=== PATIENT | female | born 1995 | race African-American/Black ===

== ENCOUNTER 2018-07-12 09:27 | Outpatient (CLI) | payer OTHER ==
--- NOTE | 2018-07-12 11:49 | ULT ---
OB ULTRASOUND: 07/12/2018 PROVIDED CLINICAL HISTORY: Assess anatomy. FINDINGS: A single live intrauterine gestation is documented, in vertex presentation, with a heart rate of 155 beats per minute. The placenta is posteriorly located and the placental tip approximates the interna l cervical os. Cervical length appears adequate. Estimated gestational age, based on today's examin ation, is 20 weeks 2 days. Estimated weight is 339, plus or minus 50, g. Amniotic fluid index is 14.9. anatomic survey demonstrates a normal appearance to the head, heart, stomach, kidneys, umbilical cord, cord insertion, bladder, spine, face, and upper and lower extremities. BIOMETRY: BPD: 4.63 cm (20 weeks 0 days). HEAD CIRCUMFERENCE: 17.54 cm (20 weeks 1 day). ABDOMINAL CIRCUMFERENCE: 14.61 cm (20 weeks 0 days). FEMUR LENGTH: 3.38 cm (20 weeks 5 days). IMPRESSION: Single live intrauterine gestation, as described above. The placental tip approximates the internal cervical os. Followup is recommended. CODE T POS: NORBERTO
== END 2018-07-12 09:28 | disposition home or self-care (01) ==
LOC: BICULT 09:27
PROVIDERS: ATTEND Family Medicine
DX: O09.92 Supervision of high risk pregnancy, unspecified, second trimester (principal); Z3A.20 20 weeks gestation of pregnancy
CPT/HCPCS: 76805

== ENCOUNTER 2018-11-18 09:24 | Inpatient (IN) | payer OTHER ==
[2018-11-18] MEDS ORDERED: Ondansetron PF 4 MG/2 ML Vial IVP PRN ×3 (09:52→15:20)
[2018-11-18] MEDS ORDERED: CEFAZOLIN 2 GM in Premix Bag 1 BAG IVPB SCH (09:52)
[2018-11-18] MEDS ORDERED: Promethazine HCl 25 MG/ML VIAL IM PRN ×3 (09:52→15:20)
[2018-11-18] MEDS ORDERED: Butorphanol Tartrate 1 MG/ML VIAL SLOW IVP PRN (09:52)
[2018-11-18] MEDS ORDERED: Bicitra 30 ML UDCUP PO SCH (09:52)
[2018-11-18] MEDS ORDERED: Lactated Ringer's 1,000 ML IV SCH (09:52)
[2018-11-18 10:03] VITALS: BMI 42.4
[2018-11-18 10:37] LABS: Mean Corpuscular Hemoglobin 26.4 pg (27.0-31.0); Mean Corpuscular Volume 80.2 fL (78.0-98.0); RBC Distribution Width 14.5 % (11.5-14.5); Red Blood Cell (RBC) Count 4.18 mill/uL (4.20-5.40); White Blood Cell (WBC) Count 9.6 thou/uL (4.8-10.8)
[2018-11-18 10:55] LABS: Mean Platelet Volume 9.8 fL (7.4-10.4); Platelet Count 137 thou/uL (130-400)
[2018-11-18 11:14] LABS: HBSAg Index 0.34 S/CO (0-0.99); Hep B Surf Ag Non-Reactive S/CO (NonReactive); Syphilis Antibody Nonreactive (Nonreactive); Syphilis Antibody Index 0.05 S/CO (<1.00 Non-Reactive)
[2018-11-18] MEDS ORDERED: Ondansetron PF 4 MG/2 ML Vial ONE ×2 (11:41→12:03)
[2018-11-18] MEDS ORDERED: MORPHINE 5 MG/10 ML PF VIAL ONE (12:02)
[2018-11-18] MEDS ORDERED: ePHEDrine/0.9% NaCl/PF SYRINGE 50 mg/10 ml ONE (12:03)
[2018-11-18] MEDS ORDERED: Oxytocin 10 UNITS/ML VIAL ONE (12:03)
[2018-11-18] MEDS ORDERED: Phenylephrine HCL 10 MG/ML VIAL ONE (12:03)
[2018-11-18] MEDS ORDERED: Naloxone HCl 0.4 mg/ml Vial IVP PRN ×2 (13:25)
[2018-11-18] MEDS ORDERED: Promethazine HCl 25 MG SUPP PR PRN (13:25)
[2018-11-18] MEDS ORDERED: L&D-Morphine 4 MG/ML VIAL SLOW IVP PRN (13:25)
[2018-11-18] MEDS ORDERED: HYDROmorphone 2 MG/ML VIAL SLOW IVP PRN (13:25)
[2018-11-18] MEDS ORDERED: Meperidine HCl/PF 25 MG/ML VIAL SLOW IVP PRN (13:25)
[2018-11-18] MEDS ORDERED: Ondansetron HCl/PF 4 MG/2 ML Vial IVP PRN (13:25)
[2018-11-18] MEDS ORDERED: diphenhydrAMINE 50 MG/ML VIAL IVP PRN (13:25)
[2018-11-18] MEDS ORDERED: Naloxone HCl 0.4 mg/ml Vial IV PRN (13:25)
[2018-11-18] MEDS ORDERED: Ketorolac Tromethamine 30 MG/ML VIAL IVP SCH (13:30)
[2018-11-18] MEDS ORDERED: Communication Order-Pharmacy FS SCH (13:30)
[2018-11-18] MEDS ORDERED: NS / Oxytocin 40 units/1000ml 1,000 ML ONE (14:01)
[2018-11-18] MEDS ORDERED: diphenhydrAMINE 25 MG CAP PO PRN (15:20)
[2018-11-18] MEDS ORDERED: HYDROcodone/Acetaminophen 5/325 mg Tablet PO PRN ×2 (15:20)
[2018-11-18] MEDS ORDERED: Simethicone Chewable 80 MG TAB PO PRN (15:20)
[2018-11-18] MEDS ORDERED: NS / Oxytocin 40 units/1000ml 1,000 ML IV SCH (15:20)
[2018-11-18] MEDS ORDERED: Bisacodyl 10 MG SUPP PR PRN (15:20)
[2018-11-18] MEDS ORDERED: Meperidine HCl/PF 25 MG/ML VIAL IM PRN (15:20)
[2018-11-18] MEDS: Ketorolac Tromethamine 30 MG/ML VIAL IVP PRN ×2 (15:58→23:34)
[2018-11-18] MEDS: Ferrous Sulfate 325 MG TAB PO SCH (18:53)
[2018-11-18] MEDS: Docusate Calcium (SURFAK) 240 MG CAP PO SCH (23:23)
[2018-11-19] MEDS ORDERED: Meperidine HCl/PF 25 MG/ML VIAL IM PRN (01:00)
[2018-11-19] MEDS ORDERED: HYDROcodone/Acetaminophen 5/325 mg Tablet PO PRN (01:00)
--- NOTE | 2018-11-19 05:29 | OP ---
DATE OF PROCEDURE: 11/18/2018 APPLICATIONS COORDINATOR: Oliver Dillon MD PROCEDURE PERFORMED: Repeat low-transverse section. PREOPERATIVE DIAGNOSES: 1. Term intrauterine at 39 weeks gestation. 2. History of prior section x2. 3. Obesity. POSTOPERATIVE DIAGNOSES: 1. Term intrauterine , delivered. 2. History of prior section x2. 3. Obesity. 4. Umbilical cord true knot. ANESTHESIA: Spinal. QUANTITATIVE BLOOD LOSS: 648 mL. INDICATIONS FOR PROCEDURE: Ms. Neumann is a 23-year-old, 3, para 2, at 39 weeks gestation with a history of 2 prior sections. She presents for a scheduled repeat low-transverse . PROCEDURE IN DETAIL: After risks, benefits, and alternatives were explained, the patient provided consent. She was given preoperative antibiotics of Ancef 2 g IV. She was taken to the operating room and spinal anesthesia was initiated. She was placed in the supine position with left lateral tilt, prepped and draped in the usual sterile fashion. A Pfannenstiel incision was made with a scalpel, which was then carried down to the midline sharply. Bovie cautery was used to address subcutaneous bleeding vessel at this time. The fascia was identified and sharply nicked on both sides of the linea alba. The fascial incision was extended in a curvilinear fashion using Montague scissors. The superior and inferior edges of the fascia were elevated with Luis Antonio clamps and bluntly and sharply dissected away from the underlying rectus muscles. The rectus muscles were divided digitally and retracted manually. The peritoneum was entered sharply during the dissection of the fascia from the rectus muscles. The peritoneal opening was extended bluntly and sharply. A bladder blade was placed and the lower segment identified. A clean scalpel used to make a low transverse score, which was then carried down in the midline. Amniotomy was performed using the scalpel and clear fluid was noted. Hysterotomy was extended in caudocranial fashion. The head was elevated to the hysterotomy and delivered through with fundal pressure. The anterior shoulder and remainder of the body were delivered through the placenta. Loose nuchal cord x1 was noted. A true knot was also noted in the cord at this time. The cord was cut, clamped after delayed cord clamping, and the infant was handed off to the awaiting resuscitative team. Cord blood was collected for routine analysis. The placenta was manually extracted. The uterus was exteriorized and curetted x2 with dry laparotomy sponge. The hysterotomy was reapproximated using 0 Vicryl in the running locking fashion. Multiple [id number] sutures were used to further control hemostasis of the uterus using 0 Vicryl. Seprafilm was applied and the uterus was internalized. The peritoneum was closed with running 2-0 Vicryl suture. Bleeding vessels on the peritoneum, rectus muscle, and subcutaneous fat were identified and addressed with the Bovie. The fascia was reapproximated using 0 Vicryl in a running nonlocking fashion. Subcutaneous tissues were reapproximated using a 3-0 Vicryl. The skin was reapproximated with genevieve and a pressure dressing was applied. The patient tolerated the procedure well. Counts were correct x3. The patient was taken to the unit after routine recovery and care. FINDINGS: 1. Grossly normal viable male with Apgars of 8 and 9 at 1 and 5 minutes respectively, born at 12:38 p.m. 2. Bass catheter draining clear urine pre and postoperatively. 3. No intraabdominal adhesions. 4. True knot in the umbilical cord. Placenta was otherwise grossly normal and was discarded. Dr. Joseph was present for the entire case. Job ID: [id number] [facility]
[2018-11-19 06:08] LABS: Hemoglobin 10.1 g/dL (12.0-16.0); Mean Corpuscular HGB CONC 31.1 g/dL (32.0-36.0); Mean Corpuscular Hemoglobin 25.1 pg (27.0-31.0); Mean Corpuscular Volume 80.8 fL (78.0-98.0); Mean Platelet Volume 10.1 fL (7.4-10.4); Platelet Count 120 thou/uL (130-400); RBC Distribution Width 14.7 % (11.5-14.5); Red Blood Cell (RBC) Count 4.02 mill/uL (4.20-5.40)
[2018-11-19] MEDS: Ferrous Sulfate 325 MG TAB PO SCH ×2 (08:31→17:30)
[2018-11-19] MEDS: HYDROcodone/Acetaminophen 5/325 mg Tablet PO PRN ×3 (08:32→18:53)
[2018-11-19] MEDS: Prenatal Vitamin 1 TAB PO SCH (08:32)
[2018-11-19] MEDS: Docusate Calcium (SURFAK) 240 MG CAP PO SCH ×2 (08:32→21:45)
[2018-11-19] MEDS: Ibuprofen 800 MG TAB PO SCH ×2 (14:41→21:43)
[2018-11-19] MEDS ORDERED: Ketorolac Tromethamine 30 MG/ML VIAL IVP PRN (19:15)
[2018-11-20] MEDS: HYDROcodone/Acetaminophen 5/325 mg Tablet PO PRN ×4 (00:37→17:50)
[2018-11-20] MEDS: Ibuprofen 800 MG TAB PO SCH ×2 (05:28→14:22)
[2018-11-20] MEDS: Ferrous Sulfate 325 MG TAB PO SCH ×2 (08:04→17:55)
[2018-11-20] MEDS: Prenatal Vitamin 1 TAB PO SCH (08:10)
[2018-11-20] MEDS: Docusate Calcium (SURFAK) 240 MG CAP PO SCH (08:10)
[2018-11-20] MEDS ORDERED: HYDROcodone/Acetaminophen 5/325 mg Tablet ONE (23:49)
[2018-11-21] MEDS ORDERED: Ibuprofen 800 MG TAB ONE (06:10)
[2018-11-21] MEDS ORDERED: HYDROcodone/Acetaminophen 5/325 mg Tablet ONE (06:31)
[2018-11-21] MEDS: Ferrous Sulfate 325 MG TAB PO SCH (08:35)
[2018-11-21 08:43] VITALS: BP 117/64; TEMP 98.7
[2018-11-21] MEDS: Ibuprofen 800 MG TAB PO SCH (10:34)
[2018-11-21] MEDS: Docusate Calcium (SURFAK) 240 MG CAP PO SCH (10:34)
[2018-11-21] MEDS: Prenatal Vitamin 1 TAB PO SCH (10:35)
== END 2018-11-21 10:37 | disposition home or self-care (01) | DRG 788 ==
LOC: L&D 09:24 → 3SW 15:33
PROVIDERS: ADMIT Family Medicine; ATTEND Family Medicine
PROC: 10D00Z1 Extraction of Products of Conception, Low, Open Approach (ICD-10-PCS; principal; 2018-11-18)
DX: O34.211 Maternal care for low transverse scar from previous cesarean delivery (principal); O99.214 Obesity complicating childbirth; O69.81X0 Labor and delivery complicated by cord around neck, without compression, not applicable or unspecified; Z3A.39 39 weeks gestation of pregnancy; Z37.0 Single live birth
CPT/HCPCS: 36415; 51702; 85027; 86780; 86850; 86900; 86901; 87340; J0690; J1200; J1885; J2270; J2310; J2370; J2405; J2590

== ENCOUNTER 2019-05-14 07:38 | Outpatient (CLI) | payer OTHER ==
--- NOTE | 2019-05-14 09:07 | ULT ---
Obstetrical ultrasound: 05/14/2019 HISTORY: Evaluate anatomy, 24-year-old female TECHNIQUE: Multiplanar grayscale sonographic imaging of the gravid uterus obtained. FINDINGS: A single live intrauterine gestation is present demonstrating a vertex presentation. Cervic al length is approximately 3.8 cm. Placenta is located posteriorly, demonstrating no evidence for placental previa or abruption. The spine, stomach, and four-chamber heart view appear unremarkable, with a heart rate of 136 bpm. kidneys and urinary bladder appear grossly unremarkable as does the umbilical cord insertion. A three-vessel cord is noted. intracranial contents appear within normal limits. Amniotic fluid index is 12.7 cm. nose/lips appear grossly unremarkable. biometry: BPD 4.5 cm 19 weeks 5 days HC 16.9 cm 19 weeks 4 days Abdominal circumference 15.4 cm 20 weeks 5 days FL 3.4 cm 20 weeks 5 days Average age based on ultrasound is 20 weeks 2 days. Estimated weight is 357 g +/- 52 g. Estimated date of delivery is 09/29/2019. IMPRESSION: Single live intrauterine gestation as detailed above.
== END 2019-05-14 07:39 | disposition home or self-care (01) ==
LOC: BICULT 07:38
PROVIDERS: ATTEND Family Medicine
DX: O09.92 Supervision of high risk pregnancy, unspecified, second trimester (principal); Z3A.20 20 weeks gestation of pregnancy
CPT/HCPCS: 76805

== ENCOUNTER 2019-09-22 05:31 | Inpatient (IN) | payer OTHER ==
[2019-09-22] MEDS ORDERED: Promethazine HCl 25 MG/ML VIAL IM PRN ×3 (05:46→15:11)
[2019-09-22] MEDS ORDERED: hydrALAZINE 20 MG/ML VIAL SLOW IVP PRN ×2 (05:46→10:26)
[2019-09-22] MEDS ORDERED: Ondansetron PF 4 MG/2 ML Vial IVP PRN ×2 (05:46→15:11)
[2019-09-22] MEDS ORDERED: CEFAZOLIN 2 GM in Premix Bag 1 BAG IVPB SCH (06:00)
[2019-09-22] MEDS ORDERED: Bicitra 30 ML UDCUP PO SCH (06:00)
[2019-09-22 06:05] VITALS: BMI 47.9
[2019-09-22] MEDS: Lactated Ringer's 1,000 ML IV SCH ×2 (06:18→16:43)
[2019-09-22] MEDS ORDERED: MORPHINE 5 MG/10 ML PF VIAL ONE (06:43)
[2019-09-22 06:44] LABS: Hemoglobin 10.1 g/dL (12.0-16.0); Mean Corpuscular HGB CONC 31.6 g/dL (32.0-36.0); Mean Corpuscular Hemoglobin 23.2 pg (27.0-31.0); Mean Corpuscular Volume 73.6 fL (78.0-98.0); Mean Platelet Volume 11.8 fL (7.4-10.4); Platelet Count 128 thou/uL (130-400); RBC Distribution Width 17.1 % (11.5-14.5); Red Blood Cell (RBC) Count 4.36 mill/uL (4.20-5.40); White Blood Cell (WBC) Count 7.5 thou/uL (4.8-10.8)
[2019-09-22] MEDS ORDERED: EPHEDRINE 25 MG/5 ML SYRINGE ONE (06:44)
[2019-09-22] MEDS ORDERED: Oxytocin 10 UNITS/ML VIAL ONE ×2 (06:44→08:09)
[2019-09-22] MEDS ORDERED: PHENYLEPHRINE-NS 100 MCG/ML 10 ML SYRINGE ONE (06:44)
[2019-09-22] MEDS ORDERED: Ondansetron PF 4 MG/2 ML Vial ONE (06:44)
[2019-09-22 07:18] LABS: HBSAg Index 0.16 S/CO (0-0.99); Hep B Surf Ag Non-Reactive S/CO (NonReactive); Syphilis Antibody Nonreactive (Nonreactive); Syphilis Antibody Index 0.04 S/CO (<1.00 Non-Reactive)
[2019-09-22] MEDS ORDERED: HYDROmorphone 2 MG/ML VIAL SLOW IVP PRN (08:01)
[2019-09-22] MEDS ORDERED: Ondansetron HCl/PF 4 MG/2 ML Vial IVP PRN (08:01)
[2019-09-22] MEDS ORDERED: L&D-Morphine 4 MG/ML VIAL SLOW IVP PRN (08:01)
[2019-09-22] MEDS ORDERED: Meperidine HCl/PF 25 MG/ML VIAL SLOW IVP PRN (08:01)
[2019-09-22] MEDS ORDERED: Ketorolac Tromethamine 30 MG/ML VIAL IVP SCH ×2 (08:15→10:30)
--- NOTE | 2019-09-22 08:42 | PDOC.OPDEL ---
OB Operative/Delivery Note Delivery Dr/Surgeon: Dr. Joseph Assist: Dr. Cardona Pre-Delivery Diagnosis: scheduled section Procedure/Post Delivery Dx: repeat low transverse CS Weeks gestation: 39 (39w1d) Anesthesia: spinal - Findings A Sex: male - Additional Findings/Plan Placenta delivered: manual removal findings: low transverse hysterotomy without extension Estimated blood loss: 600mL Compilations/Other Findings: Preoperative Diagnosis: 1)Term intrauterine 2)Previous x3 Postoperative Diagnosis: 1)Term intrauterine , delivered 2)Previous x3 Anesthesia: spinal Indications: The patient is a 24 year old female at 39.1 weeks gestation who presents for a repeat scheduled . Procedure in Detail: After risks, benefits, and alternatives were explained to the patient, she gave informed consent. Pre-operative antibiotics included Cefazolin 2 gram IV. The patient was taken to the operating room and spinal anesthesia was initiated. She was placed in the supine position with a left tilt and prepped and draped in usual sterile fashion. A Pfannenstiel incision was made with a scalpel and carried down to the level of the fascia which was sharply nicked. The fascial cut was extended bilaterally with Montague scissors. The inferior and superior edges of the cut fascial edges were elevated with Luis Antonio clamps and the underlying rectus muscles were sharply and bluntly dissected free. The recti were divided digitally and retracted manually. The peritoneum was entered bluntly and retracted manually. Bladder blade was placed. A low transverse score was made with the scalpel and the uterus was entered in the midline bluntly. Clear fluid was seen. The hysterotomy was extended manually. The infant was noted to be vertex and was easily delivered by fundal pressure. Mouth and nares were bulb suctioned. Cord clamped and cut and grossly normal male was handed to waiting nurse. Cord blood was obtained. Placenta was manually extracted, found to be intact with 3 vessel cord and discarded. The uterus was externalized and the endometrium was curetted with a dry lap. The bladder blade was replaced and the uterus was closed with a running locking 0-vicryl suture. Following this there was a small bleeding area on the left lateral aspect of the hysterotomy that was repaired with 0-vicryl [id number] suture. Following this hemostasis was noted. The abdomen was irrigated with saline and suctioned free of clots. Seprafilm was placed over the anterior aspect of the uterus. The uterus was internalized and the hysterotomy was again noted to be hemostatic. The peritoneum was closed with running, non-locking 3-0 vicryl suture. The rectus was examined and there was a few bleeding areas that were cauterized with the bovie and then billy was placed over the rectus for better hemostasis. The fascia was closed with a running non-locking 0-PDS suture. The subcutaneous tissue was irrigated and there were a few bleeders that were cauterized with the bovie. The subcutaneous layer was approximated with simple interrupted 3-0 vicryl suture. The skin was approximated with genevieve and a Donna wound vac was placed. All counts were correct. The patient tolerated the procedure well and was taken to the recovery room in stable condition. Time of Delivery: 0755 on 09/22/19 Estimated Blood Loss: 600 ml Complications: None Specimens: Cord blood sent to lab for blood type Findings: Grossly normal male went to nursery. Grossly normal placenta with 3 vessel cord discarded. Drains: Bass to gravity draining clear urine Post delivery plan: routine recovery
[2019-09-22] MEDS ORDERED: Ketorolac Tromethamine 30 MG/ML VIAL ONE (09:08)
[2019-09-22] MEDS ORDERED: Meperidine HCl/PF 25 MG/ML VIAL ONE (09:09)
[2019-09-22] MEDS ORDERED: HYDROcodone/Acetaminophen 5/325 mg Tablet PO PRN ×2 (10:26)
[2019-09-22] MEDS ORDERED: NS / Oxytocin 40 units/1000ml 1,000 ML IV SCH (10:26)
[2019-09-22] MEDS ORDERED: Lanolin Ointment 7 GM TUBE TOP PRN (10:26)
[2019-09-22] MEDS ORDERED: Bisacodyl 10 MG SUPP PR PRN (10:26)
[2019-09-22] MEDS ORDERED: Adacel (T-DAP) 0.5 ML SYRINGE IM ONE (10:26)
[2019-09-22] MEDS ORDERED: Meperidine HCl/PF 25 MG/ML VIAL IM PRN (10:26)
[2019-09-22] MEDS: Simethicone Chewable 80 MG TAB PO PRN ×2 (11:42→22:37)
[2019-09-22] MEDS: diphenhydrAMINE 25 MG CAP PO PRN ×2 (11:42→22:37)
[2019-09-22] MEDS: Prenatal Vitamin 1 TAB PO SCH (11:42)
[2019-09-22] MEDS ORDERED: Naloxone HCl 0.4 mg/ml Vial IVP PRN ×2 (15:11)
[2019-09-22] MEDS ORDERED: Naloxone HCl 0.4 mg/ml Vial IV PRN (15:11)
[2019-09-22] MEDS ORDERED: Promethazine HCl 25 MG SUPP PR PRN (15:11)
[2019-09-22] MEDS ORDERED: diphenhydrAMINE 50 MG/ML VIAL IVP PRN (15:11)
[2019-09-22] MEDS ORDERED: Communication Order-Pharmacy FS SCH (15:15)
[2019-09-22] MEDS: Ketorolac Tromethamine 30 MG/ML VIAL IVP SCH ×3 (16:30→22:36)
[2019-09-22] MEDS: Docusate Calcium (SURFAK) 240 MG CAP PO SCH (22:36)
[2019-09-22] MEDS: Ferrous Sulfate 325 MG TAB PO SCH (23:39)
[2019-09-23] MEDS: Simethicone Chewable 80 MG TAB PO PRN ×3 (02:20→21:19)
[2019-09-23] MEDS: HYDROcodone/Acetaminophen 5/325 mg Tablet PO PRN ×5 (02:20→23:07)
[2019-09-23] MEDS ORDERED: HYDROcodone/Acetaminophen 5/325 mg Tablet PO PRN (03:15)
[2019-09-23] MEDS: Ibuprofen 800 MG TAB PO SCH ×3 (05:21→21:19)
[2019-09-23 06:23] LABS: Hemoglobin 9.8 g/dL (12.0-16.0); Mean Corpuscular HGB CONC 31.4 g/dL (32.0-36.0); Mean Corpuscular Volume 73.4 fL (78.0-98.0); Platelet Count 113 thou/uL (130-400); RBC Distribution Width 16.9 % (11.5-14.5); Red Blood Cell (RBC) Count 4.23 mill/uL (4.20-5.40); White Blood Cell (WBC) Count 9.7 thou/uL (4.8-10.8)
[2019-09-23] MEDS: Docusate Calcium (SURFAK) 240 MG CAP PO SCH ×2 (07:58→21:19)
[2019-09-23] MEDS: Prenatal Vitamin 1 TAB PO SCH (07:58)
[2019-09-23] MEDS: Ferrous Sulfate 325 MG TAB PO SCH ×2 (07:58→21:19)
[2019-09-24] MEDS: Ibuprofen 800 MG TAB PO SCH ×3 (05:35→21:59)
[2019-09-24] MEDS: HYDROcodone/Acetaminophen 5/325 mg Tablet PO PRN ×2 (07:38→19:48)
[2019-09-24] MEDS: Docusate Calcium (SURFAK) 240 MG CAP PO SCH ×2 (08:30→21:59)
[2019-09-24] MEDS: Prenatal Vitamin 1 TAB PO SCH (08:30)
[2019-09-24] MEDS: Ferrous Sulfate 325 MG TAB PO SCH ×2 (08:30→21:59)
[2019-09-24 19:47] VITALS: TEMP 98.9
[2019-09-25] MEDS: HYDROcodone/Acetaminophen 5/325 mg Tablet PO PRN ×3 (00:18→12:57)
[2019-09-25] MEDS: Ibuprofen 800 MG TAB PO SCH (05:26)
[2019-09-25 08:03] VITALS: BP 133/77
[2019-09-25] MEDS: Ferrous Sulfate 325 MG TAB PO SCH (08:27)
[2019-09-25] MEDS: Prenatal Vitamin 1 TAB PO SCH (08:27)
[2019-09-25] MEDS: Docusate Calcium (SURFAK) 240 MG CAP PO SCH (08:27)
--- NOTE | 2019-09-26 22:05 | PQF ---
RC MARQUEZ ROLAND R MD [id number] CLINICAL DOCUMENTATION CLARIFICATION FORM: POST DISCHARGE Addendum to original discharge summary date: ____ Late entry note date: __ DATE: 09/26/19 ATTN: Andrew Joseph Please exercise your independent, professional judgment in responding to the clarification form. Clinical indicators are provided on the bottom of this form for your review Can you please further clarify the specificity of Anemia? Please check appropriate box(s): [ ] Acute blood loss anemia [ ] Post-op anemia related to acute blood loss [ ] Anemia unspecified [ ] Other diagnosis please specify [ ] Unable to determine In addition, please specify: Present on Admission (POA): [ ] Yes [ ] No [ ] Unable to determine For continuity of documentation, please document condition throughout progress notes and discharge summary. Thank You. CLINICAL INDICATORS - SIGNS / SYMPTOMS / LABS Labor and Delivery H and P- Anemia Labor and Delivery Note pg.1- estimated blood loss 600ml Labor and Delivery Note pg.2- there was a small bleeding area on the left lateral aspect of the hysterotomy that was repaired with 0-Vicryl figure of eight suture. Laboratory- HGB 10.1L, 9.8L Laboratory- HCT 32.1L, 31.1L RISK FACTORS Schedule section-Labor and Delivery Note Previous CS x3--Labor and Delivery Note TREATMENTS: I and O monitoring IV Fluids- MAR H/H monitoring Ferrous sulfate 325mg PO- MAR (This form is maintained as a part of the permanent medical record) 2014 [employer]. All Rights Reserved [email or web address]
== END 2019-09-25 14:35 | disposition home or self-care (01) | DRG 788 ==
LOC: L&D 05:31 → 3SW 11:14
PROVIDERS: ADMIT Family Medicine; ATTEND Family Medicine
PROC: 10D00Z1 Extraction of Products of Conception, Low, Open Approach (ICD-10-PCS; principal; 2019-09-22)
DX: O34.211 Maternal care for low transverse scar from previous cesarean delivery (principal); O99.02 Anemia complicating childbirth; D64.9 Anemia, unspecified; Z3A.39 39 weeks gestation of pregnancy; Z37.0 Single live birth
CPT/HCPCS: 36415; 36416; 51702; 85027; 86780; 86850; 86900; 86901; 87340; J0690; J1885; J2175; J2274; J2310; J2405; J2590; Q0163